=== PATIENT | male | born 1985 | race Caucasian/White ===

== ENCOUNTER 2018-02-28 20:28 | Emergency (ER) | payer MEDICAID, OTHER ==
[2018-02-28] MEDS ORDERED: TYLENOL 325 MG PO ONE (21:28)
[2018-02-28] MEDS ORDERED: CLEOCIN 150 MG CAPSULE PO ONE (21:28)
[2018-02-28] MEDS ORDERED: TYLENOL 325 MG ONE (21:35)
[2018-02-28] MEDS ORDERED: CLEOCIN 150 MG CAPSULE ONE (21:35)
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
[2018-02-28 21:51] VITALS: BP 124/86; PULSE 79; O2SAT 97
== END 2018-02-28 21:45 | disposition home or self-care (01) ==
LOC: ED 20:28
DX: L72.3 Sebaceous cyst (principal)
CPT/HCPCS: 99283; A9270-GY

== ENCOUNTER 2018-03-05 19:05 | Emergency (ER) | payer OTHER ==
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
[2018-03-05] MEDS ORDERED: Naprosyn 500 MG PO ONE (21:53)
[2018-03-05 22:41] VITALS: BP 118/75; PULSE 65; O2SAT 99
== END 2018-03-05 22:30 | disposition home or self-care (01) ==
LOC: ED 19:05
DX: L72.3 Sebaceous cyst (principal)
CPT/HCPCS: 99283; A9270-GY

== ENCOUNTER 2019-01-19 07:04 | Day surgery (SDC) | payer OTHER ==
[~2019-01-19 07:04] MED LIST: Lactated Ringers 1,000 ML IV SCH
[2019-01-19] MEDS ORDERED: CLINDAMYCIN-D5W 900 MG/50 ML*** 900 MG/50 ML BAG IV ONE (07:05)
[2019-01-19] MEDS ORDERED: Sensorcaine 0.25% 10 ML ONE (08:31)
[2019-01-19] MEDS ORDERED: SUBLIMAZE 250 MCG/5 ML ONE (09:15)
[2019-01-19] MEDS ORDERED: DIPRIVAN 200 MG/20 ML IV ONE (09:15)
[2019-01-19] MEDS ORDERED: Versed 2 MG/2 ML Injection ONE (09:15)
[2019-01-19] MEDS ORDERED: Xylocaine-Mpf 2% 5 Ml Vial ONE (09:18)
[2019-01-19 11:36] VITALS: O2SAT 95
[2019-01-19 11:43] VITALS: BP 131/87; PULSE 70
--- NOTE | 2019-01-19 12:59 | OP ---
SURGERY DATE/TIME: 01/19/2019 1003 PREOPERATIVE DIAGNOSIS: Left submandibular mass. POSTOPERATIVE DIAGNOSES: Left submandibular cyst. PROCEDURES: Excision of left submandibular cyst 3 x 3 cm deep to platysma. SURGEON: Mikel Blount M.D. ANESTHESIA: General with LMA. SPECIMEN: Left submandibular cyst. ESTIMATED BLOOD LOSS: Less than 10 cc. COMPLICATIONS: None. FINDINGS: The left submandibular cyst with cystic white thick content measuring 3 x 3 cm deep to the platysma. PATIENT PRESENTATION: This patient presents with symptomatic cyst under his left mandible. Imaging appears to be fairly superficial and appears to be a cyst, lymph node or some other lesion. After discussion of risks and benefits of surgical resection the patient wished to proceed. DESCRIPTION OF PROCEDURE: The patient was brought to the operating room and placed under general anesthesia. Head tilted to the right. Neck was prepped and draped in sterile fashion. A transverse incision was made with scalpel. The platysma was transected with scalpel and also electrocautery. Skin hooks were used. The cyst was then immediately apparent underneath the platysma and was circumferentially dissected with electrocautery. Some of the cystic contents came out of the cyst but the cyst wall was removed completely intact. It did appear to be a simple cyst. There are no concerning findings on it. The cyst was removed the rest of the way from its base with electrocautery. The wound was then irrigated and suctioned dry. The wound was hemostatic. The wound was then closed with interrupted 3-0 Vicryl sutures and the skin was closed with running 4-0 Vicryl subcuticular suture. Steri-Strips and dressings were applied. The patient was recovered and taken to PACU in stable condition.
== END 2019-01-19 12:00 ==
LOC: SDC 07:04
PROVIDERS: ATTEND Surgery
DX: L72.0 Epidermal cyst (principal)
CPT/HCPCS: 88304; J2250; J2704; J3010